=== PATIENT | female | born 1950 | race Caucasian/White ===

== ENCOUNTER 2017-08-07 14:36 | Inpatient (IN) | payer MEDICARE, BC ==
[2017-08-07] MEDS ORDERED: FUROSEMIDE 40 MG SOL IV ONE (14:46)
[2017-08-07] MEDS ORDERED: FUROSEMIDE 40 MG SOL ONE (14:50)
[2017-08-07 15:01] LABS: HEMATOCRIT 41 % (35-47); HEMOGLOBIN 13.7 gm/dl (12.0-15.5); MEAN CORPUSCULAR HEMOGLOBIN 29.2 pg (27.0-32.0); MEAN CORPUSCULAR HGB CONC 33.6 gm/dl (32.0-36.0); MEAN CORPUSCULAR VOLUME 87 fL (81-99)
[2017-08-07] MEDS ORDERED: ALBUTEROL/IPRATROPIUM 1 VIAL SOL INH ONE (15:01)
[2017-08-07] MEDS ORDERED: SOLUMEDROL 125 MG/2 ML 125 MG/2 ML PDS IV ONE (15:02)
[2017-08-07] MEDS ORDERED: ALBUTEROL/IPRATROPIUM 1 VIAL SOL ONE ×2 (15:02→15:11)
[2017-08-07] MEDS ORDERED: SOLUMEDROL 125 MG/2 ML 125 MG/2 ML PDS ONE ×2 (15:02→15:11)
[2017-08-07 15:04] LABS: INR 0.94 (0.86-1.12)
[2017-08-07 15:08] LABS: ALBUMIN 3.5 gm/dl (3.4-5.0); ALKALINE PHOSPHATASE 141 IU/L (46-116); ALT 24 IU/L (14-63); AST 18 IU/L (15-37); BILIRUBIN,TOTAL 1.1 mg/dl (0.2-1.0); BLOOD UREA NITROGEN 16 mg/dl (7-18); CALCIUM 8.9 mg/dl (8.5-10.1); CARBON DIOXIDE 25.7 mEq/L (21-32); CHLORIDE 104 mMol/L (98-107); GLOM FILT RATE 71 mL/min (>60); GLUCOSE 101 mg/dl (74-106); MAGNESIUM 1.7 mg/dl (1.8-2.4); POTASSIUM 4.2 mMol/L (3.5-5.1); SODIUM 137 mMol/L (136-145); TOTAL PROTEIN 7.2 gm/dl (6.4-8.2); TROP I < 0.017 ng/ml (0.000-0.056)
[2017-08-07] MEDS: SODIUM CHLORIDE 0.9% FLUSH 10 ML SOL IV PRN ×2 (15:20→19:15)
[2017-08-07 15:30] LABS: BAND NEUTROPHILS % (MANUAL) 0 %; BASOPHILS % (MANUAL) 1 % (0-3); EOSINOPHILS % (MANUAL) 6 % (0-9); LYMPHOCYTES % (MANUAL) 22 % (10-50); MONOCYTES % (MANUAL) 10 % (0-12); NEUTROPHILS % (MANUAL) 61 % (37-80)
[2017-08-07 15:31] LABS: ANISOCYTOSIS SLIGHT
[2017-08-07] MEDS ORDERED: SODIUM CHLORIDE 0.9% 1000ML 1,000 ML IV ONE ×2 (15:43→15:44)
[2017-08-07 15:50] LABS: ABG PH 7.35 (7.35-7.45)
[2017-08-07] MEDS ORDERED: ALBUTEROL NEB SOL 2.5MG/3ML 1 VIAL SOL NEB PRN (17:56)
[2017-08-07] MEDS: SOLUMEDROL 125 MG/2 ML 125 MG/2 ML PDS IV SCH (19:14)
[2017-08-07] MEDS: ALBUTEROL/IPRATROPIUM 1 VIAL SOL INH SCH (19:19)
[2017-08-07] MEDS: AZITHROMYCIN 250 MG TAB PO SCH (19:35)
[2017-08-07] MEDS ORDERED: PATIENT EDUCATION 1 MISC PRN (21:32)
[2017-08-08] MEDS: ALBUTEROL/IPRATROPIUM 1 VIAL SOL INH SCH ×2 (00:43→06:06)
[2017-08-08] MEDS: SOLUMEDROL 125 MG/2 ML 125 MG/2 ML PDS IV SCH ×4 (00:47→22:48)
[2017-08-08] MEDS: SODIUM CHLORIDE 0.9% FLUSH 10 ML SOL IV PRN ×6 (00:49→23:21)
[2017-08-08] MEDS: ENOXAPARIN 40 MG SOL SC SCH (09:59)
[2017-08-08] MEDS: ASPIRIN EC 81 MG PO SCH (10:00)
[2017-08-08] MEDS: ESCITALOPRAM 10 MG TAB PO SCH (10:00)
[2017-08-08] MEDS: LOSARTAN POTASSIUM 50 MG TAB PO SCH (10:01)
[2017-08-08] MEDS ORDERED: ALBUTEROL/IPRATROPIUM 1 VIAL SOL INH PRN (10:31)
[2017-08-08] MEDS ORDERED: SOLUMEDROL 125 MG/2 ML 125 MG/2 ML PDS IV SCH (10:45)
[2017-08-08] MEDS ORDERED: NAPROXEN 500 MG TAB ONE (12:49)
[2017-08-08] MEDS: FEXOFENADINE HCL 180 MG TAB PO SCH (12:56)
[2017-08-08] MEDS: NAPROXEN 500 MG TAB PO PRN (12:59)
[2017-08-08] MEDS: AZITHROMYCIN 250 MG TAB PO SCH (19:17)
[2017-08-09] MEDS ORDERED: ALUMINUM/MAGNESIUM 30 ML SUS ONE (05:20)
[2017-08-09] MEDS ORDERED: ALUMINUM/MAGNESIUM 30 ML SUS PO PRN (05:21)
[2017-08-09] MEDS: SODIUM CHLORIDE 0.9% FLUSH 10 ML SOL IV PRN ×3 (05:31→21:06)
[2017-08-09] MEDS: SOLUMEDROL 125 MG/2 ML 125 MG/2 ML PDS IV SCH (05:31)
[2017-08-09 07:10] LABS: CALCIUM 8.6 mg/dl (8.5-10.1); CARBON DIOXIDE 27.6 mEq/L (21-32); CREATININE 0.98 mg/dl (0.60-1.00); POTASSIUM 4.1 mMol/L (3.5-5.1)
[2017-08-09] MEDS ORDERED: AZITHROMYCIN 250 MG TAB PO SCH (09:00)
[2017-08-09] MEDS: FEXOFENADINE HCL 180 MG TAB PO SCH (09:00)
[2017-08-09] MEDS: LOSARTAN POTASSIUM 50 MG TAB PO SCH (09:00)
[2017-08-09] MEDS: ASPIRIN EC 81 MG PO SCH (09:00)
[2017-08-09] MEDS: ENOXAPARIN 40 MG SOL SC SCH (09:00)
[2017-08-09] MEDS: ESCITALOPRAM 10 MG TAB PO SCH (09:01)
[2017-08-09] MEDS: FAMOTIDINE 20 MG TAB PO SCH (09:01)
[2017-08-09] MEDS: PREDNISONE 20 MG TAB PO SCH (09:01)
[2017-08-09] MEDS: AZITHROMYCIN 250 MG TAB PO SCH (19:20)
[2017-08-10] MEDS ORDERED: NAPROXEN 500 MG TAB ONE (02:45)
[2017-08-10] MEDS: NAPROXEN 500 MG TAB PO PRN (02:49)
[2017-08-10] MEDS: FAMOTIDINE 20 MG TAB PO SCH (06:07)
[2017-08-10 08:12] VITALS: BP 131/76; PULSE 80; RESP 16; TEMP 97.8
[2017-08-10] MEDS: FEXOFENADINE HCL 180 MG TAB PO SCH (08:32)
[2017-08-10] MEDS: ASPIRIN EC 81 MG PO SCH (08:33)
[2017-08-10] MEDS: LOSARTAN POTASSIUM 50 MG TAB PO SCH (08:33)
[2017-08-10] MEDS: PREDNISONE 20 MG TAB PO SCH (08:33)
[2017-08-10] MEDS: ESCITALOPRAM 10 MG TAB PO SCH (08:33)
[2017-08-10] MEDS: ENOXAPARIN 40 MG SOL SC SCH (09:05)
[2017-08-10 09:27] VITALS: O2SAT 94
[2017-08-10] MEDS: AZITHROMYCIN 250 MG TAB PO SCH (09:57)
== END 2017-08-10 10:05 | disposition home or self-care (01) | DRG 203 ==
LOC: ED 14:36 → SUPCPDRO 14:36 → UNDOADMIN 17:47 → ACUTE CARE 17:47
PROVIDERS: ADMIT Family Medicine; ATTEND Family Medicine
DX: R09.02 Hypoxemia (principal); I10 Essential (primary) hypertension; J98.01 Acute bronchospasm; R05 Cough; J45.901 Unspecified asthma with (acute) exacerbation; F41.9 Anxiety disorder, unspecified; R06.02 Shortness of breath; R53.1 Weakness; R00.0 Tachycardia, unspecified
CPT/HCPCS: 36415; 36600; 71045; 71275; 80048; 80053; 82803; 83735; 83880; 84484; 85007; 85027; 85378; 85610; 85730; 93005; 94150; 94640; 94760; 94762; 96374; 96375; 99284; 99285; J1650; J1940; J2930; J7613; Q9967; A9270-GY

== ENCOUNTER 2017-08-28 13:45 | Outpatient (CLI) | payer MEDICARE, BC | END 2017-08-28 13:46 | disposition home or self-care (01) | DRG 554 | LOC: CONVCARE 13:45 | PROVIDERS: ATTEND Orthopaedic Surgery | DX: M17.12 Unilateral primary osteoarthritis, left knee (principal) | CPT/HCPCS: 73562 ==

== ENCOUNTER 2018-02-05 05:20 | Inpatient (IN) | payer MEDICARE, BC ==
[2018-02-05] MEDS ORDERED: LACTATED RINGERS 1,000 ML IV ONE (06:00)
[2018-02-05] MEDS: SCOPOLAMINE 1.5MG PATCH TD SCH (06:15)
[2018-02-05] MEDS ORDERED: LACTATED RINGERS 1,000 ML IV SCH (07:00)
[2018-02-05] MEDS ORDERED: TRANEXAMIC ACID 100 MG/ML SOL ONE ×2 (07:29→10:21)
[2018-02-05] MEDS ORDERED: PHENYLEPHRINE HYDROCHLORIDE 10 MG/ML SOL ONE (07:29)
[2018-02-05] MEDS ORDERED: ONDANSETRON HCL 4 MG/2 ML SOL ONE (07:29)
[2018-02-05] MEDS ORDERED: PROPOFOL 500 MG/50 ML EMU IV ONE ×2 (07:29→09:23)
[2018-02-05] MEDS ORDERED: DEXAMETHASONE 20 MG/5 ML (4 MG/ML SOL) ONE (07:29)
[2018-02-05] MEDS ORDERED: MORPHINE SULFATE 0.5 MG/ML SOL ONE (07:30)
[2018-02-05] MEDS ORDERED: BUPIVACAINE HCL IN DEXTROSE/PF 2 ML AMPUL IJ ONE (07:30)
[2018-02-05] MEDS ORDERED: MIDAZOLAM 2 MG/2 ML SOL ONE (07:30)
[2018-02-05] MEDS ORDERED: CLINDAMYCIN 150 MG/ML SOL ONE ×2 (07:35→16:58)
[2018-02-05] MEDS ORDERED: SODIUM CHLORIDE 20 ML 40 ML ONE (07:36)
[2018-02-05] MEDS ORDERED: BUPIVACAINE HCL 0.25% MPF 30 ML SOL INFIL ONE (07:37)
[2018-02-05] MEDS ORDERED: EPHEDRINE SULFATE 50 MG/ML SOL ONE (08:35)
[2018-02-05] MEDS: BUPIVACAINE HCL 0.25% MPF 30 ML SOL INFIL ONE ×2 (09:44→10:13)
[2018-02-05] MEDS: BUPIVACAINE LIPOSOME 20 ML SUS ONE ×2 (09:44→10:13)
[2018-02-05] MEDS ORDERED: PROPOFOL 10 MG/ML 200 MG/20 ML EMU IV ONE (10:11)
[2018-02-05] MEDS ORDERED: ACETAMINOPHEN 325 MG PO PRN ×2 (11:53→12:33)
[2018-02-05] MEDS ORDERED: FLEET ENEMA PR PRN ×2 (11:53→12:33)
[2018-02-05] MEDS ORDERED: HYDROMORPHONE 1 MG/ML SYRINGE IV PRN ×2 (11:53→12:33)
[2018-02-05] MEDS ORDERED: ALUMINUM/MAGNESIUM 30 ML SUS PO PRN ×2 (11:53→12:33)
[2018-02-05] MEDS ORDERED: ZOLPIDEM TARTRATE 5 MG TAB PO PRN ×2 (11:53→12:33)
[2018-02-05] MEDS ORDERED: ONDANSETRON 4 MG ODT BU PRN ×2 (11:53→12:33)
[2018-02-05] MEDS ORDERED: ONDANSETRON HCL 4 MG/2 ML SOL IV PRN ×2 (11:53→12:33)
[2018-02-05] MEDS ORDERED: DIAZEPAM 5 MG TAB PO PRN ×2 (11:53→12:33)
[2018-02-05] MEDS ORDERED: MAGNESIUM HYDROXIDE 30 ML SUS PO PRN ×2 (11:53→12:33)
[2018-02-05] MEDS ORDERED: BISACODYL 10 MG SUP PR PRN ×2 (11:53→12:33)
[2018-02-05] MEDS ORDERED: APAP/OXYCODONE 1 EACH TABLET PO PRN (12:33)
[2018-02-05] MEDS ORDERED: SODIUM CHLORIDE 0.9% 500 ML 500 ML IV PRN (12:33)
[2018-02-05] MEDS ORDERED: DEXTROSE/SALINE 0.45/KCL 20MEQ 1,000 ML/1,000 ML SOL IV SCH (12:45)
[2018-02-05] MEDS ORDERED: SODIUM CHLORIDE 0.9% FLUSH 10 ML SOL IV SCH (12:45)
[2018-02-05] MEDS: DEXTROSE/SALINE 0.45/KCL 20MEQ 1,000 ML/1,000 ML SOL IV SCH (12:52)
[2018-02-05] MEDS: SODIUM CHLORIDE 0.9% FLUSH 10 ML SOL IV SCH ×2 (12:52→20:45)
[2018-02-05] MEDS ORDERED: ALBUTEROL HFA 60 PUFF/INHALER INH PRN (12:57)
[2018-02-05] MEDS ORDERED: SODIUM CHLORIDE 0.9% 100 ML 100 ML IV ONE (16:58)
[2018-02-05] MEDS: CLINDAMYCIN 150 MG/ML 900 MG in SODIUM CHLORIDE 0.9% 100 ML 100 ML IV SCH (17:07)
[2018-02-05] MEDS: APAP/OXYCODONE 1 EACH TABLET PO PRN ×2 (17:08→21:33)
[2018-02-05] MEDS: SODIUM CHLORIDE 0.9% 500 ML 500 ML IV PRN ×2 (18:45→19:41)
[2018-02-05] MEDS ORDERED: SENNOSIDES A AND B 8.6 MG TAB PO SCH (21:00)
[2018-02-05] MEDS ORDERED: GABAPENTIN 300 MG CAP PO SCH (21:00)
[2018-02-05] MEDS: GABAPENTIN 300 MG CAP PO SCH (21:28)
[2018-02-05] MEDS: BUDESONIDE/FORMOTEROL 160/4.5 AER INH SCH (21:28)
[2018-02-05] MEDS: SENNOSIDES A AND B 8.6 MG TAB PO SCH (21:28)
[2018-02-06] MEDS: DEXTROSE/SALINE 0.45/KCL 20MEQ 1,000 ML/1,000 ML SOL IV SCH ×3 (00:42→08:58)
[2018-02-06] MEDS ORDERED: SODIUM CHLORIDE 0.9% 100 ML 100 ML IV ONE (00:45)
[2018-02-06] MEDS ORDERED: CLINDAMYCIN 150 MG/ML SOL ONE (00:45)
[2018-02-06] MEDS: CLINDAMYCIN 150 MG/ML 900 MG in SODIUM CHLORIDE 0.9% 100 ML 100 ML IV SCH (01:02)
[2018-02-06] MEDS: APAP/OXYCODONE 1 EACH TABLET PO PRN ×5 (01:34→22:19)
[2018-02-06] MEDS: SODIUM CHLORIDE 0.9% FLUSH 10 ML SOL IV SCH ×2 (03:27→15:23)
[2018-02-06 07:18] LABS: HEMOGLOBIN 9.2 gm/dl (12.0-15.5); MEAN CORPUSCULAR HEMOGLOBIN 29.6 pg (27.0-32.0); MEAN CORPUSCULAR HGB CONC 32.7 gm/dl (32.0-36.0)
[2018-02-06] MEDS: BUDESONIDE/FORMOTEROL 160/4.5 AER INH SCH ×2 (08:55→22:21)
[2018-02-06] MEDS: RIVAROXABAN 10 MG TAB PO SCH (08:57)
[2018-02-06] MEDS: GABAPENTIN 300 MG CAP PO SCH ×2 (08:57→22:19)
[2018-02-06] MEDS ORDERED: RIVAROXABAN 10 MG TAB PO SCH (09:00)
[2018-02-06] MEDS: PANTOPRAZOLE SODIUM 40 MG ECT PO SCH (11:22)
[2018-02-06] MEDS ORDERED: LOSARTAN POTASSIUM 50 MG TAB PO SCH (21:00)
[2018-02-06] MEDS: SENNOSIDES A AND B 8.6 MG TAB PO SCH (22:20)
[2018-02-07] MEDS: APAP/OXYCODONE 1 EACH TABLET PO PRN ×3 (01:32→13:03)
[2018-02-07] MEDS: SODIUM CHLORIDE 0.9% FLUSH 10 ML SOL IV SCH ×4 (02:14→21:21)
[2018-02-07 07:28] LABS: HEMOGLOBIN 8.4 gm/dl (12.0-15.5); MEAN CORPUSCULAR HEMOGLOBIN 29.9 pg (27.0-32.0); MEAN CORPUSCULAR HGB CONC 33.2 gm/dl (32.0-36.0)
[2018-02-07] MEDS: BUDESONIDE/FORMOTEROL 160/4.5 AER INH SCH ×2 (09:02→21:21)
[2018-02-07] MEDS: GABAPENTIN 300 MG CAP PO SCH ×2 (09:02→21:21)
[2018-02-07] MEDS: RIVAROXABAN 10 MG TAB PO SCH (09:03)
[2018-02-07] MEDS: PANTOPRAZOLE SODIUM 40 MG ECT PO SCH (09:03)
[2018-02-07 19:53] LABS: HEMATOCRIT 25 % (35-47); HEMOGLOBIN 8.1 gm/dl (12.0-15.5); MEAN CORPUSCULAR HEMOGLOBIN 29.1 pg (27.0-32.0); MEAN CORPUSCULAR HGB CONC 32.2 gm/dl (32.0-36.0); MEAN CORPUSCULAR VOLUME 90 fL (81-99)
[2018-02-07 19:57] LABS: CARBON DIOXIDE 24.7 mEq/L (21-32); CREATININE 1.13 mg/dl (0.60-1.00); POTASSIUM 4.3 mMol/L (3.5-5.1)
[2018-02-07 20:10] LABS: BAND NEUTROPHILS % (MANUAL) 4 %; NEUTROPHILS % (MANUAL) 76 % (37-80)
[2018-02-07 20:11] LABS: BASOPHILS % (MANUAL) 0 % (0-3); EOSINOPHILS % (MANUAL) 2 % (0-9); LYMPHOCYTES % (MANUAL) 15 % (10-50); MONOCYTES % (MANUAL) 3 % (0-12); POIKILOCYTOSIS SLIGHT AMT; TARGET CELLS PRESENT
[2018-02-07] MEDS: SODIUM CHLORIDE 0.9% FLUSH 10 ML SOL IV PRN ×2 (20:44→21:34)
[2018-02-07 20:45] LABS: UNIT TYPE A POSITIVE
[2018-02-07 20:47] LABS: UNIT TYPE A POSITIVE
[2018-02-07] MEDS ORDERED: DILTIAZEM 5 MG/ML SOL IV ONE (21:02)
[2018-02-07] MEDS: SENNOSIDES A AND B 8.6 MG TAB PO SCH (21:21)
[2018-02-07] MEDS ORDERED: SODIUM CHLORIDE 0.9% FLUSH 10 ML SOL IV PRN (21:31)
[2018-02-08] MEDS: SODIUM CHLORIDE 0.9% FLUSH 10 ML SOL IV PRN ×2 (00:11→02:50)
[2018-02-08] MEDS: APAP/OXYCODONE 1 EACH TABLET PO PRN ×4 (02:50→20:01)
[2018-02-08] MEDS: SODIUM CHLORIDE 0.9% FLUSH 10 ML SOL IV SCH ×3 (03:28→20:01)
[2018-02-08] MEDS: SCOPOLAMINE 1.5MG PATCH TD SCH (06:36)
[2018-02-08 07:32] LABS: HEMOGLOBIN 9.8 gm/dl (12.0-15.5); MEAN CORPUSCULAR HEMOGLOBIN 29.2 pg (27.0-32.0); MEAN CORPUSCULAR HGB CONC 32.8 gm/dl (32.0-36.0)
[2018-02-08] MEDS: GABAPENTIN 300 MG CAP PO SCH ×2 (08:42→20:01)
[2018-02-08] MEDS: BUDESONIDE/FORMOTEROL 160/4.5 AER INH SCH ×2 (08:43→20:02)
[2018-02-08] MEDS: RIVAROXABAN 10 MG TAB PO SCH (08:45)
[2018-02-08] MEDS: PANTOPRAZOLE SODIUM 40 MG ECT PO SCH (08:45)
[2018-02-08] MEDS ORDERED: DILTIAZEM ER 120 MG C24 PO SCH (09:00)
[2018-02-08] MEDS ORDERED: DILTIAZEM 5 MG/ML SOL IV ONE (13:49)
[2018-02-08] MEDS ORDERED: METOPROLOL TARTRATE 5 MG/5 ML SOL IV PRN (18:12)
[2018-02-08] MEDS ORDERED: DILTIAZEM ER 120 MG C24 ONE (18:15)
[2018-02-08] MEDS ORDERED: DILTIAZEM ER 120 MG C24 PO ONE (18:16)
[2018-02-08] MEDS: SENNOSIDES A AND B 8.6 MG TAB PO SCH (20:02)
[2018-02-08 21:48] VITALS: RESP 18
[2018-02-09] MEDS: APAP/OXYCODONE 1 EACH TABLET PO PRN ×3 (03:23→20:21)
[2018-02-09] MEDS: SODIUM CHLORIDE 0.9% FLUSH 10 ML SOL IV SCH ×3 (06:15→20:07)
[2018-02-09 08:52] LABS: CALCIUM 8.2 mg/dl (8.5-10.1); CARBON DIOXIDE 25.6 mEq/L (21-32); CREATININE 0.97 mg/dl (0.60-1.00); POTASSIUM 4.2 mMol/L (3.5-5.1)
[2018-02-09] MEDS: DILTIAZEM ER 120 MG C24 PO SCH (09:10)
[2018-02-09] MEDS: BUDESONIDE/FORMOTEROL 160/4.5 AER INH SCH ×2 (09:11→20:11)
[2018-02-09] MEDS: GABAPENTIN 300 MG CAP PO SCH ×2 (09:11→20:07)
[2018-02-09] MEDS: PANTOPRAZOLE SODIUM 40 MG ECT PO SCH (09:11)
[2018-02-09] MEDS: RIVAROXABAN 10 MG TAB PO SCH (09:11)
[2018-02-09 10:03] LABS: HEMATOCRIT 28 % (35-47); LYMPHOCYTES % (AUTO) 21.5 % (10-50); MEAN CORPUSCULAR HEMOGLOBIN 28.4 pg (27.0-32.0); MEAN CORPUSCULAR HGB CONC 31.8 gm/dl (32.0-36.0); MEAN CORPUSCULAR VOLUME 89 fL (81-99); MONOCYTES % (AUTO) 12.3 % (0-12); NEUTROPHILS % (AUTO) 60.5 % (37-80)
[2018-02-09 10:04] LABS: BASOPHILS % (AUTO) 1 % (0-3); EOSINOPHILS % (AUTO) 5 % (0-9)
[2018-02-09] MEDS: [UNRECOGNIZED DRUG - OTHER] PO SCH ×3 (13:24→20:08)
[2018-02-09] MEDS ORDERED: METOPROLOL SUCCINATE 50 MG ER TAB ONE (20:05)
[2018-02-09] MEDS: SENNOSIDES A AND B 8.6 MG TAB PO SCH (20:09)
[2018-02-09] MEDS ORDERED: METOPROLOL SUCCINATE 50 MG TER PO SCH (21:00)
[2018-02-10] MEDS: [UNRECOGNIZED DRUG - OTHER] PO SCH (03:29)
[2018-02-10] MEDS: SODIUM CHLORIDE 0.9% FLUSH 10 ML SOL IV SCH ×2 (05:04→12:27)
[2018-02-10] MEDS: APAP/OXYCODONE 1 EACH TABLET PO PRN ×2 (05:46→12:29)
[2018-02-10 08:04] LABS: CALCIUM 8.2 mg/dl (8.5-10.1); CARBON DIOXIDE 25.9 mEq/L (21-32); CREATININE 0.93 mg/dl (0.60-1.00)
[2018-02-10 08:08] LABS: BASOPHILS % (AUTO) 1 % (0-3); EOSINOPHILS % (AUTO) 7 % (0-9); HEMATOCRIT 28 % (35-47); HEMOGLOBIN 9.2 gm/dl (12.0-15.5); MEAN CORPUSCULAR HEMOGLOBIN 29.1 pg (27.0-32.0); MEAN CORPUSCULAR HGB CONC 32.2 gm/dl (32.0-36.0); MEAN CORPUSCULAR VOLUME 90 fL (81-99); MONOCYTES % (AUTO) 13.8 % (0-12); NEUTROPHILS % (AUTO) 62.5 % (37-80)
[2018-02-10 09:00] VITALS: BP 102/64; PULSE 98; TEMP 98.1; O2SAT 94
[2018-02-10] MEDS: BUDESONIDE/FORMOTEROL 160/4.5 AER INH SCH (09:01)
[2018-02-10] MEDS: GABAPENTIN 300 MG CAP PO SCH (09:02)
[2018-02-10] MEDS: DILTIAZEM ER 120 MG C24 PO SCH (09:03)
[2018-02-10] MEDS: RIVAROXABAN 10 MG TAB PO SCH (09:04)
[2018-02-10] MEDS: PANTOPRAZOLE SODIUM 40 MG ECT PO SCH (09:04)
[2018-02-10] MEDS ORDERED: [UNRECOGNIZED DRUG - OTHER] PO SCH (10:30)
== END 2018-02-10 12:45 | disposition home or self-care (01) | DRG 470 ==
LOC: ACUTE CARE 05:20
PROVIDERS: ADMIT Orthopaedic Surgery; ATTEND Orthopaedic Surgery
PROC: F01ZBZZ Bed Mobility Assessment (ICD-10-PCS; 2018-02-05)
PROC: 0SRD0J9 Replacement of Left Knee Joint with Synthetic Substitute, Cemented, Open Approach (ICD-10-PCS; principal; 2018-02-05 08:00)
PROC: F02Z3ZZ Grooming/Personal Hygiene Assessment (ICD-10-PCS; 2018-02-06)
PROC: F02Z0ZZ Bathing/Showering Assessment (ICD-10-PCS; 2018-02-06)
PROC: 30233N1 Transfusion of Nonautologous Red Blood Cells into Peripheral Vein, Percutaneous Approach (ICD-10-PCS; 2018-02-07)
DX: M17.12 Unilateral primary osteoarthritis, left knee (principal); E66.9 Obesity, unspecified; Z96.652 Presence of left artificial knee joint; I48.91 Unspecified atrial fibrillation; B37.9 Candidiasis, unspecified
CPT/HCPCS: 36415; 51798; 73560; 80048; 85007; 85018; 85025; 85027; 85049; 86920; 93005; 93012; 94150; 99070; J1100; J2250; J2274; J2405; J3490; P9016; A4450; A6219; A6232; A6402; A9270-GY; J2370; J2704

== ENCOUNTER 2018-04-02 12:56 | Outpatient (CLI) | payer MEDICARE, BC ==
[2018-02-10 09:00] VITALS: O2SAT 94
== END 2018-04-02 12:57 | disposition home or self-care (01) | DRG 950 ==
LOC: CONVCARE 12:56
PROVIDERS: ATTEND Orthopaedic Surgery
DX: Z51.89 Encounter for other specified aftercare (principal); Z98.890 Other specified postprocedural states
CPT/HCPCS: 73562